=== PATIENT | female | born 1995 | race African-American/Black ===

== ENCOUNTER 2020-09-02 22:10 | Inpatient (IN) | payer BC ==
[~2020-09-02] VITALS: Ht 167.6 cm; Wt 122.5 kg
--- NOTE | 2020-09-03 00:25 | NUR ---
MD AT BED SIDE FOR EXAM
[2020-09-03 00:46] LABS: BASOPHILS # (AUTO) 0.1 /CMM (0.0-0.2); BASOPHILS % (AUTO) 0.7 % (0.0-2.0); EOSINOPHILS % (AUTO) 0.2 % (0.0-6.0); HEMATOCRIT 50 % (33-45); HEMOGLOBIN 16.3 g/dL (11.5-14.8); LYMPHOCYTES % (AUTO) 23.2 % (20.0-44.0); MEAN CORPUSCULAR HGB CONC 33 g/dl (31.0-36.0); MEAN CORPUSCULAR VOLUME 87 fL (82-100); MONOCYTES # (AUTO) 0.7 /CMM (0.1-1.30); MONOCYTES % (AUTO) 5.2 % (2.0-12.0); NEUTROPHILS % (AUTO) 70.7 % (43.0-81.0); PLATELET COUNT (AUTO) 315 /CMM (150-450); RED BLOOD CELL COUNT(AUTO) 5.72 MIL/uL (4.0-5.2); WHITE BLOOD COUNT (AUTO) 12.8 K/uL (4.3-11.0)
--- NOTE | 2020-09-03 01:02 | NUR ---
DR. MCCOY SPEAKING WITH DR. GRIFFITH
[2020-09-03 01:04] LABS: POTASSIUM 4.8 mmol/L (3.5-5.1)
[2020-09-03] MEDS ORDERED: IV NS 0.9% 1,000 ML BAG IV ONE ×2 (01:30→02:30)
[2020-09-03] MEDS ORDERED: PIPERACILLIN /TAZOBACTAM 3.375 G in IV D5W 50 ML IV ONE (01:30)
[2020-09-03] MEDS ORDERED: PIPERACILLIN /TAZOBACTAM 3.375 G VIAL IV ONE (01:31)
--- NOTE | 2020-09-03 01:37 | NUR ---
CALLED FOR COVID SWAB
--- NOTE | 2020-09-03 01:40 | NUR ---
LACTIC 3.1
[2020-09-03] MEDS ORDERED: HYDROCODONE/APAP 5/325MG TABLET PO PRN (02:00)
[2020-09-03] MEDS ORDERED: ONDANSETRON HCL/PF 4 MG/2 ML VIAL IVP PRN (02:00)
[2020-09-03] MEDS ORDERED: ACETAMINOPHEN 325 MG TABLET PO PRN (02:00)
[2020-09-03] MEDS ORDERED: MAG HYDROX/AL HYDROX/SIMETH 30 ML UDC PO PRN (02:00)
[2020-09-03] MEDS ORDERED: ZOLPIDEM TARTRATE 5 MG TABLET PO PRN (02:00)
[2020-09-03] MEDS ORDERED: ONDANSETRON HCL/PF - ER 4 MG/2 ML VIAL IV ONE (02:00)
[2020-09-03] MEDS ORDERED: Z GUARD REMEDY 2 OZ OINT TP PRN (02:00)
[2020-09-03] MEDS ORDERED: MAGNESIUM HYDROXIDE 30 ML UDC PO PRN (02:00)
[2020-09-03] MEDS ORDERED: MORPHINE SULFATE INJ 4 MG/ML DISP.SYRIN IV PRN ×2 (02:00→07:00)
[2020-09-03] MEDS ORDERED: IV NS 0.9% 1,000 ML IV SCH (02:00)
--- NOTE | 2020-09-03 02:08 | NUR ---
URINE AND COVID SWAB SENT TO LAB
[2020-09-03] MEDS ORDERED: ONDANSETRON HCL/PF 4 MG/2 ML VIAL ONE (02:24)
[2020-09-03] MEDS ORDERED: MORPHINE SULFATE INJ 4 MG/ML DISP.SYRIN ONE ×2 (02:24→06:40)
[2020-09-03 02:27] LABS: BILIRUBIN,URINE NEGATIVE (NEGATIVE); COLOR,URINE YELLOW (YELLOW); LEUKOCYTE ESTERASE ,URINE NEGATIVE (NEGATIVE); NITRITE, URINE NEGATIVE (NEGATIVE); PH,URINE 5.5 (5.0-8.0); PROTEIN,URINE 100 mg/dl (NEGATIVE); UGLUCOSE >=1000 mg/dL (NEGATIVE); UROBILINOGEN,URINE 0.2 EU/dL (0.2)
[2020-09-03] MEDS ORDERED: INSULIN REGULAR, HUMAN 100 UNIT/ML 10 ML VIAL SQ ONE (02:30)
[2020-09-03] MEDS ORDERED: INSULIN REGULAR, HUMAN 100 UNIT/ML 10 ML VIAL ONE (02:59)
[2020-09-03 03:05] LABS: BACTERIA,URINE 1+ /HPF (None Seen); RBC,URINE 0-2 /HPF (0-2); SQUAMOUS EPITHELIAL CELL,UR Many /HPF (None Seen); URINE AMORPHOUS URATE Many /HPF (None Seen)
[2020-09-03] MEDS ORDERED: HYDROCODONE/APAP 5/325MG TABLET ONE (05:03)
[2020-09-03 06:06] LABS: BILIRUBIN,DIRECT 0.1 mg/dL (0.0-0.2); BILIRUBIN,TOTAL 0.4 mg/dL (0.2-1.0)
[2020-09-03 06:10] LABS: MAGNESIUM 1.9 mg/dL (1.8-2.4); PHOSPHORUS 3.7 mg/dL (2.5-4.9)
--- NOTE | 2020-09-03 06:20 | NUR ---
US TECH AT BED SIDE
--- NOTE | 2020-09-03 06:26 | NUR ---
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
--- NOTE | 2020-09-03 06:45 | NUR ---
morphine 4mg IV given as ordered for c/o severe clitoris pain. will cont to monitor
--- NOTE | 2020-09-03 06:51 | NUR ---
PER DR. FORD, PT WILL BE TRANSFERRED TO [facility]. DR. KAISER MADE AWARE. SPOKE WITH ANDREW FROM [place], FACE SHEET AND COVID RESULTS FAXED PER REQUEST, WILL CALL BACK WITH TRANSFER INFORMATION.
--- NOTE | 2020-09-03 07:20 | NUR ---
TRANSFER INFORMATION: PT WILL BE TRANSFERRED TO [facility] ACCEPTING MD: DR. GRIFFITH NUMBER FOR REPORT: [phone] BED ASSIGNMENT [id number]
--- NOTE | 2020-09-03 07:29 | NUR ---
ATTEMPTED TO SET UP TRANSPORTATION THROUGH [facility], UNABLE TO IDENTIFY MEMBER WITH ID NUMBER TO SET UP TRANSPORTATION AT THIS TIME
--- NOTE | 2020-09-03 07:32 | NUR ---
ATTEMPTED TO GIVE REPORT TO [facility], ASKED TO CALL BACK AT A LATER TIME
--- NOTE | 2020-09-03 07:43 | NUR ---
ASSESSED PT ON BED ASLEEP BUT EASILY AROUSABLE. PT IS AAOX4, NOT IN RESPIRATORY DISTRESS, V/S STABLE, KEPT RESTED AND COMFORTABLE. WILL CONTINUE TO MONITOR.
--- NOTE | 2020-09-03 07:50 | NUR ---
MELIS[facility] CALLED ETA 40-60 MINS. TRIP # [id number]
[2020-09-03] MEDS ORDERED: PIPERACILLIN /TAZOBACTAM 3.375 G in IV D5W 100 ML IV SCH (08:00)
[2020-09-03] MEDS ORDERED: PIPERACILLIN /TAZOBACTAM 3.375 G in IV D5W 50 ML IV SCH (08:00)
--- NOTE | 2020-09-03 08:06 | NUR ---
CALLED REPORT TO LEYDI GERMAN. PT AWAITING TRANSPORT AMBULANCE.
[2020-09-03 09:14] VITALS: BP 140/80
--- NOTE | 2020-09-03 09:15 | NUR ---
TRANSPORTED IN STABLE CONDITION.
[2020-09-03] MEDS ORDERED: IV NS 0.9% 1,000 ML IV PRN (10:00)
== END 2020-09-03 09:15 | disposition short-term general hospital (02) | DRG 872 ==
LOC: ER 22:14 → TRANSITION 09-03 01:49 → OBSVTOIN 09-03 01:49
PROVIDERS: ADMIT Nurse Practitioner Acute Care; ATTEND Nurse Practitioner Acute Care
DX: A41.9 Sepsis, unspecified organism (principal); E87.2 Acidosis; E87.1 Hypo-osmolality and hyponatremia; Z68.41 Body mass index [BMI] 40.0-44.9, adult; N76.4 Abscess of vulva; N76.2 Acute vulvitis; R60.9 Edema, unspecified; E66.01 Morbid (severe) obesity due to excess calories; Z91.010 Allergy to peanuts; E86.1 Hypovolemia; E78.1 Pure hyperglyceridemia; R73.9 Hyperglycemia, unspecified; E28.2 Polycystic ovarian syndrome; Z79.83 Long term (current) use of bisphosphonates; F12.90 Cannabis use, unspecified, uncomplicated; F17.200 Nicotine dependence, unspecified, uncomplicated
CPT/HCPCS: 36415; 76856-TC; 80048-TC; 80061-TC; 81001; 82247-TC; 82248-TC; 82962-TC; 83605-TC; 83735-TC; 84100-TC; 84703-TC; 85025-TC; 87040-TC; G0378; J1815; J2270; J2405; J2543; J7030; J7060

== ENCOUNTER 2022-06-21 02:48 | Emergency (ER) | payer BC ==
[~2022-06-21] VITALS: Ht 167.6 cm; Wt 122.5 kg
[2022-06-21 03:57] VITALS: BP 194/115
--- NOTE | 2022-06-21 04:00 | NUR ---
MD SALAZAR AT BEDSIDE
[2022-06-21] MEDS ORDERED: HYDR-4209 PO (04:07)
[2022-06-21] MEDS ORDERED: SULF1TAB48 PO (04:07)
[2022-06-21] MEDS ORDERED: HYDROCODONE/APAP 5/325MG TABLET ONE (04:11)
[2022-06-21] MEDS ORDERED: HYDROCODONE/APAP 5/325MG TABLET PO ONE (04:30)
--- NOTE | 2022-06-21 04:30 | NUR ---
DC INSTRUCTIONS GIVEN TO PT; PT VERBALIZED UNDERSTANDING.
== END 2022-06-21 04:31 | disposition home or self-care (01) ==
LOC: ER 02:51
DX: L02.214 Cutaneous abscess of groin (principal); I10 Essential (primary) hypertension; Z91.010 Allergy to peanuts; Z60.2 Problems related to living alone; Z79.899 Other long term (current) drug therapy